=== PATIENT | male | born 1960 | race Caucasian/White ===

== ENCOUNTER → 2017-09-11 | Outpatient (CLI) | payer BC ==
[2017-09-11 10:56] LABS: AADO2 Arterial 32.4 mmHg (7.0-24.0); Allen Test ACCEPTAB; Arterial Base Excess 0.7 mmol/L (-3.0-3); Arterial Blood Gas Oxygen Sat 94.6 mmHG (95.0-98.0); Arterial COHb 0.8 % (0.0-3.0); Arterial Fraction of Oxyhgb 93.7 % (93.0-99.0); Arterial MetHb 0.2 % (0.0-1.5); Arterial Total Hemglobin 17.2 g/dl (12.0-18.0); Arterial pCO2 39.4 mmhg (35-45); MODE ROOM AIR; Site Right Radial
== END | disposition home or self-care (01) ==
LOC: PUL 10:42
DX: R06.02 Shortness of breath (principal)
CPT/HCPCS: 36600; 82803

== ENCOUNTER 2017-11-22 12:49 | Day surgery (SDC) | payer BC ==
[2017-11-22] MEDS ORDERED: MIDAZOLAM 1 MG/ML 2 ML INJ (15:19)
[2017-11-22] MEDS ORDERED: LIDOCAINE 2% (SDV) 5 ML INJ (15:19)
[2017-11-22] MEDS ORDERED: PROPOFOL 20 ML (15:19)
[2017-11-22] MEDS ORDERED: FENTAnyl 50 MCG/ML VIAL ×3 (15:20→15:25)
== END 2017-11-22 16:22 | disposition home or self-care (01) ==
LOC: GIL 12:49
DX: Z12.11 Encounter for screening for malignant neoplasm of colon (principal); D12.6 Benign neoplasm of colon, unspecified; K64.8 Other hemorrhoids; I10 Essential (primary) hypertension; E11.9 Type 2 diabetes mellitus without complications; J44.9 Chronic obstructive pulmonary disease, unspecified
CPT/HCPCS: 45380; 82962; 88305